=== PATIENT | male | born 1950 | race Caucasian/White ===

== ENCOUNTER 2020-05-17 09:21 | Inpatient (IN) | payer MEDICARE, OTHER ==
[~2020-05-17] VITALS: Ht 190.5 cm; Wt 118.0 kg
[2020-05-17] VITALS (465 sets, daily range): BP systolic 129–152; BP diastolic 57–74; PULSE 50–72; TEMP 97–98.6; O2SAT 88–99
[~2020-05-17 09:21] MED LIST: ASPIRIN 32325 MG/TAB PO; COZAAR 50MG50 MG/TAB PO; FLONASE NASAL S16 GM NS; HCTZ 25MG TAB25 MG PO; MOTRIN 800800 MG/TAB PO; NEURONTIN100 MG/CAP PO; NEXIUM 40MG40 MG PO; PRINZIDE 25 MG-1 TAB PO; ZYRTEC 10MG10 MG PO
[2020-05-17 09:41] LABS: HEMATOCRIT 44.9 % (42.0-52.0); HEMOGLOBIN 15.5 g/dl (13.5-18.0); MEAN CELL VOLUME 96 fl (80.0-100.0); MEAN CORPUSCULAR HEMOGLOBIN 33 pg (27.0-31.0); MEAN CORPUSCULAR HGB CONC 35 g/dl (33.0-37.0); MEAN PLATELET VOLUME 10.5 fl (7.4-10.4); PLATELET COUNT 269 K/mm3 (130-400); RED BLOOD COUNT 4.69 M/mm3 (4.20-5.60); REDCELL DISTRIBUTION WIDTH-CV 12.1 % (11.5-14.5)
--- NOTE | 2020-05-17 10:15 | NUR ---
SEE [facility]EREGE FOR ALL MEDICATION ADMIN. TIMES, INTRA AND POST SEDATION ASSESSMENTS
[2020-05-17 10:55] LABS: PROTHROMBIN TIME 11.4 SECONDS (9.7-12.8)
[2020-05-17 10:58] LABS: PARTIAL THROMBOPLASTIN TIME 60.6 SECONDS (26.0-37.0)
[2020-05-17 11:04] LABS: CALCIUM 9.2 mg/dL (8.4-10.2); CREATININE, serum 0.85 (0.66-1.25); POTASSIUM 4.1 mmol/L (3.4-5.0)
[2020-05-17 11:16] LABS: TROPONIN-I 0.027 ng/mL (0.000-0.035)
[2020-05-17] MEDS ORDERED: GLUCOPHAGE500 MG/TAB PO (15:44)
[2020-05-17] MEDS ORDERED: VITAMINC1000TA PO (15:45)
[2020-05-17] MEDS ORDERED: EPA FISH OIL1 SGL PO (15:45)
--- NOTE | 2020-05-17 19:45 | NUR ---
Patient resting in bed; denies any concerns at this time. Radial site clean,dry and intact. +2 pulses. Will continue to monitor.
[2020-05-18] VITALS (428 sets, daily range): BP systolic 123–127; BP diastolic 61–68; PULSE 48–56; TEMP 97.7–98.1; O2SAT 84–97
[2020-05-18 05:46] LABS: BASO % 0.5 % (0.0-2.0); EOS # 0.3 (0.0-0.7); EOS % 3.9 % (0-4.0); GRAN # 5.4 (1.4-6.5); GRAN % 66.4 % (42.2-75.2); HEMATOCRIT 44.3 % (42.0-52.0); HEMOGLOBIN 15.2 g/dl (13.5-18.0); LYMPH # 1.3 (1.2-3.4); LYMPH % 16.1 % (20.0-51.0); MEAN CELL VOLUME 96 fl (80.0-100.0); MEAN CORPUSCULAR HEMOGLOBIN 33 pg (27.0-31.0); MEAN CORPUSCULAR HGB CONC 34 g/dl (33.0-37.0); MONO % 12.4 % (1.7-9.3); PLATELET COUNT 248 K/mm3 (130-400); RED BLOOD COUNT 4.63 M/mm3 (4.20-5.60); REDCELL DISTRIBUTION WIDTH-CV 12.2 % (11.5-14.5)
[2020-05-18 05:59] LABS: CALCIUM 9.4 mg/dL (8.4-10.2); CREATININE, serum 0.93 (0.66-1.25)
--- NOTE | 2020-05-18 08:00 | NUR ---
Shift assessment complete at this time. Plan of care reviewed at bedside with patient. Additional time taken to address any other needs or concerns. Vitals stable at this time. Denies pain or any other discomforts. R radial cath site clean, dry, et intact with no drainage or hematoma present. Bed in low position, call light within reach.
[2020-05-18] MEDS ORDERED: LIPITOR 80MG80 MG PO (11:09)
[2020-05-18] MEDS ORDERED: BRILINTA90 MG PO (11:09)
[2020-05-18] MEDS ORDERED: ASPIRIN E.C. 8181 MG PO (11:10)
[2020-05-18] MEDS ORDERED: TOPROL XL 25MG25 MG PO (11:10)
== END 2020-05-18 12:00 | disposition home or self-care (01) | DRG 247 ==
LOC: COL.ER 09:21 → ICU 12:44
PROVIDERS: Emergency Medicine; ADMIT Student in an Organized Health Care Education/Training Program
PROC: 027034Z Dilation of Coronary Artery, One Artery with Drug-eluting Intraluminal Device, Percutaneous Approach (ICD-10-PCS; principal; 2020-05-17)
PROC: 02C03ZZ Extirpation of Matter from Coronary Artery, One Artery, Percutaneous Approach (ICD-10-PCS; 2020-05-17)
PROC: 4A023N7 Measurement of Cardiac Sampling and Pressure, Left Heart, Percutaneous Approach (ICD-10-PCS; 2020-05-17)
PROC: B2111ZZ Fluoroscopy of Multiple Coronary Arteries using Low Osmolar Contrast (ICD-10-PCS; 2020-05-17)
DX: I21.4 Non-ST elevation (NSTEMI) myocardial infarction (principal); I10 Essential (primary) hypertension; I24.9 Acute ischemic heart disease, unspecified; E11.9 Type 2 diabetes mellitus without complications; Z79.84 Long term (current) use of oral hypoglycemic drugs; Z87.891 Personal history of nicotine dependence
CPT/HCPCS: 99222-AI; C9600; J0583; J1644; J1650; J2250; J3010; Q9967